=== PATIENT | female | born 1935 | race Caucasian/White ===

== ENCOUNTER 2024-08-20 08:18 | Inpatient (IN) | payer BC, MEDICARE, OTHER ==
--- NOTE | 2024-08-20 08:37 | ED ---
General Adult HPI - General Chief complaint: Fall Stated complaint: Right leg pain Time Seen by Provider: 08/20/24 08:21 Source: patient, EMS, RN notes reviewed Mode of arrival: EMS Limitations: no limitations - History of Present Illness Initial comments: Patient is an 88-year-old female presenting to the emergency department with concerns with right hip pain. Patient had a fall yesterday. No head injury or loss of consciousness. No neck or back pain. No chest pain or dyspnea. No abdominal pain. Patient states she was able to walk a couple steps yesterday with dragging her leg however he is unable to get out of bed today. No other area of injury or concern - Related Data Home Medications Medication Instructions Recorded Confirmed Baclofen 10 mg PO HS 08/20/24 08/20/24 Carbidopa-Levodopa ER 50-200Mg 1 tab PO BID 08/20/24 08/20/24 [Sinemet CR 50-200 mg] HYDROcodone/APAP 5-325MG [[place] 1 tab PO Q6H PRN 08/20/24 08/20/24 5-325] Magnesium Oxide [Magnesium] 500 mg PO DAILY 08/20/24 08/20/24 QUEtiapine [SEROquel] 25 mg PO HS 08/20/24 08/20/24 amLODIPine [Norvasc] 5 mg PO DAILY 08/20/24 08/20/24 Allergies Allergy/AdvReac Type Severity Reaction Status Date / Time Penicillins Allergy Severe Unknown Verified 08/20/24 10:41 Review of Systems ROS Statement: Those systems with pertinent positive or pertinent negative responses have been documented in the HPI. ROS Other: All systems not noted in ROS Statement are negative. Constitutional: Denies: fever Eyes: Denies: eye pain ENT: Denies: ear pain Respiratory: Denies: dyspnea Cardiovascular: Denies: chest pain Gastrointestinal: Denies: abdominal pain Musculoskeletal: Denies: back pain Skin: Denies: rash Neurological: Denies: weakness Past Medical History Past Medical History: Dementia, Hypertension Additional Past Medical History / Comment(s): Parkinson's, History of Any Multi-Drug Resistant Organisms: None Reported Past Surgical History: No Surgical Hx Reported Past Psychological History: No Psychological Hx Reported Smoking Status: Never smoker Past Alcohol Use History: None Reported Past Drug Use History: None Reported General Exam Limitations: no limitations General appearance: alert, in no apparent distress Head exam: Present: atraumatic, normocephalic Eye exam: Present: normal appearance Neck exam: Present: normal inspection. Absent: tenderness Respiratory exam: Present: normal lung sounds bilaterally Cardiovascular Exam: Present: regular rate, normal rhythm Expanded Peripheral pulses: 2+: Dorsalis Pedis (R) GI/Abdominal exam: Present: soft. Absent: tenderness Extremities exam: Present: tenderness (Mild right anterior hip with limited range of motion secondary to discomfort. Distally extremities are neurovascular intact.) Back exam: Present: normal inspection. Absent: tenderness Neurological exam: Present: alert. Absent: motor sensory deficit Psychiatric exam: Present: normal affect, normal mood Skin exam: Present: normal color Course Vital Signs 08/20/24 08:20 Temperature 98.9 F Pulse Rate 87 Respiratory 16 Rate Blood Pressure 147/96 O2 Sat by Pulse 92 L Oximetry EKG Findings - EKG Results: EKG: interpreted by MAUDE (l axis), sinus rhythm, normal QRS, normal ST/T Medical Decision Making - Medical Decision Making Was pt. sent in by a medical professional or institution (, PA, SOCIAL SERVICES SPECIALIST, urgent care, hospital, or retirement...) When possible be specific @ -No Did you speak to anyone other than the patient for history (EMS, parent, family, police, friend...)? What history was obtained from this source @ -No Did you review nursing and triage notes (agree or disagree)? Why? @ -I reviewed and agree with nursing and triage notes Were old charts reviewed (outside hosp., previous admission, EMS record, old EKG, old radiological studies, urgent care reports/EKG's, retirement records)? Report findings @ -No old charts were reviewed Differential Diagnosis (chest pain, altered mental status, abdominal pain women, abdominal pain men, vaginal bleeding, weakness, fever, dyspnea, syncope, headache, dizziness, GI bleed, back pain, seizure, CVA, palpatations, mental health, musculoskeletal)? @ -Differential Musculoskeletal Muscular strain, contusion, ligament sprain, fracture, arthritis, septic arthritis, bursitis, cellulitis, muscle spasm, nerve compression, DVT, arterial occlusion, herpes zoster, electrolyte abnormality, tumor.... This is not meant to be in all inclusive list EKG interpreted by me (3pts min.). @ -As above X-rays interpreted by me (1pt min.). @ -Chest x-ray unremarkable. X-ray right hip and pelvis concerning for right subcapital femoral neck fracture CT interpreted by me (1pt min.). @ -None done U/S interpreted by me (1pt. min.). @ -None done What testing was considered but not performed or refused? (CT, X-rays, U/S, labs)? Why? @ -Basic blood work and EKG will be ordered What meds were considered but not given or refused? Why? @ -None Did you discuss the management of the patient with other professionals (professionals i.e. , PA, SOCIAL SERVICES SPECIALIST, lab, RT, psych nurse, geriatric social worker, telecom assistant, teacher, customer service officer, caseworker intake)? Give summary @ -Orthopedics for admission, Dr. Lr Was smoking cessation discussed for >3mins.? @ -No Was critical care preformed (if so, how long)? @ -No Were there social determinants of health that impacted care today? How? (Homelessness, low income, unemployed, alcoholism, drug addiction, transportatio n, low edu. Level, literacy, decrease access to med. care, intermediate, rehab)? @ -No Was there de-escalation of care discussed even if they declined (Discuss DNR or withdrawal of care, Hospice)? DNR status @ -No What co-morbidities impacted this encounter? (DM, HTN, Smoking, COPD, CAD, Cancer, CVA, ARF, Chemo, Hep., AIDS, mental health diagnosis, sleep apnea, morbid obesity)? @ -None Was patient admitted / discharged? Hospital course, mention meds given and route, prescriptions, significant lab abnormalities, going to OR and other pertinent info. @ -88-year-old female presents for fall and right hip pain. Concern for femoral neck fracture. Patient will be admitted to orthopedics. [place] orders written Undiagnosed new problem with uncertain prognosis? @ -No Drug Therapy requiring intensive monitoring for toxicity (Heparin, Nitro, Insulin, Cardizem)? @ -No Were any procedures done? @ -No Diagnosis/symptom? @ -Femoral neck fracture Acute, or Chronic, or Acute on Chronic? @ -Acute Uncomplicated (without systemic symptoms) or Complicated (systemic symptoms)? @ -Default Side effects of treatment? @ -No Exacerbation, Progression, or Severe Exacerbation? @ -No Poses a threat to life or bodily function? How? (Chest pain, [place], NH, pneumonia, PE, COPD, DKA, ARF, appy, cholecystitis, CVA, Diverticulitis, Homicidal, Suicidal, threat to staff... and all critical care pts) @ -Threat to right lower leg function and ability to ambulate - Lab Data Result diagrams: 08/20/24 11:55 08/20/24 11:55 Disposition Clinical Impression: Hip fracture, right Disposition: ADMITTED IP TO THIS HOSP Is patient prescribed a controlled substance at d/c from ED?: No Time of Disposition: 11:23
[2024-08-20] MEDS: MORPHINE SULFATE 4 MG/ML SYRINGE IVP STA (09:21)
--- NOTE | 2024-08-20 09:54 | XR ---
EXAMINATION TYPE: XR chest 1V portable DATE OF EXAM: 08/20/2024 COMPARISON: None INDICATION: Trauma, fall TECHNIQUE: Single frontal view of the chest is obtained. FINDINGS: The heart size is mildly prominent. The pulmonary vasculature is normal. No suspicious focal consolidation evident. No pneumothorax evident. Osseous structures appear intact. IMPRESSION: 1. No acute pulmonary process. 2. Mild cardiomegaly. [facility], , 08/20/2024 9:51 AM
--- NOTE | 2024-08-20 09:56 | XR ---
EXAMINATION TYPE: XR Hip RT and AP Pelvis DATE OF EXAM: 08/20/2024 COMPARISON: None HISTORY: Trauma, fall TECHNIQUE: 2 view right hip supplemented with AP pelvis FINDINGS: There is lucency at the subcapital right hip. Correlate for nondisplaced subcapital fractur e. This could be confirmed with CT if additional evaluation is required. Femoral head articulates with the acetabulum. Joint space is narrowed. No additional areas suspicious for fractures evident. Normal bowel gas is present. Left hip articulates with the acetabulum. Symphysis pubis and sacroiliac joints are normal. IMPRESSION: 1. Nondisplaced subcapital fracture likely present right hip. [facility], , 08/20/2024 9:54 AM
[2024-08-20] MEDS ORDERED: ACETAMINOPHEN TAB 325 MG TAB PO PRN (11:36)
[2024-08-20] MEDS ORDERED: NALOXONE 0.4 MG/ML 1 ML VIAL IV PRN (11:36)
[2024-08-20] MEDS ORDERED: traMADol 50 MG TAB PO PRN (11:36)
[2024-08-20 12:04] LABS: Basophils % (A) 0 %; Eosinophils # (A) 0.2 k/uL (0-0.7); Eosinophils % (A) 2 %; HCT 38.4 % (34.0-46.0); HGB 12.6 gm/dL (11.4-16.0); Lymphocytes # (A) 0.6 k/uL (1.0-4.8); Lymphocytes % (A) 9 %; MCH 29.4 pg (25.0-35.0); MCHC 32.7 g/dL (31.0-37.0); MCV 89.7 fL (80.0-100.0); Mean Platelet Volume 7.8; Monocytes # (A) 0.4 k/uL (0-1.0); Monocytes % (A) 6 %; Neutrophils # (A) 5.7 k/uL (1.3-7.7); Neutrophils % (A) 82 %; Platelet Count 209 k/uL (150-450); RBC 4.28 m/uL (3.80-5.40); RDW 14.4 % (11.5-15.5)
[2024-08-20 12:14] LABS: ALT 45 U/L (4-34); AST 108 U/L (14-36); African American GFR (CKD) >90 (>60 ml/min/1.73 sqM); Albumin 3.6 g/dL (3.5-5.0); Alkaline Phosphatase 96 U/L (38-126); Anion Gap 4 mmol/L; Blood Urea Nitrogen 16 mg/dL (7-17); Calcium 8.8 mg/dL (8.4-10.2); Carbon Dioxide 28 mmol/L (22-30); Chloride 107 mmol/L (98-107); Glucose 121 mg/dL (74-99); Magnesium 2.2 mg/dL (1.6-2.3); Non-African American GFR(CKD) 78 (>60 ml/min/1.73 sqM); Potassium 4.3 mmol/L (3.5-5.1); Sodium 139 mmol/L (137-145); Total Protein 6.2 g/dL (6.3-8.2)
[2024-08-20 12:32] LABS: Prothrombin Time 10.5 sec (10.0-12.5)
[2024-08-20] MEDS: SODIUM CHLORIDE 0.9% 1,000 ML IV SCH (12:33)
[2024-08-20 12:39] LABS: Partial Thromboplastin Time 21.6 sec (22.0-30.0)
[2024-08-20] MEDS: MORPHINE SULFATE 4 MG/ML SYRINGE IV PRN (13:09)
--- NOTE | 2024-08-20 15:21 | P.HPOR ---
History of Present Illness H&P Date: 08/20/24 Chief Complaint: Right subcapital femoral head fracture status post ground level fall Patient is an 88-year-old female who presented to the emergency department with concerns of right hip pain. Patient had a ground level fall yesterday. No head injury or loss of consciousness. No neck or back pain. No chest pain or dyspnea. No abdominal pain. Patient states she was able to walk a couple steps yesterday with dragging her leg however she is unable to get out of bed today. No other area of injury or concern. Patient lives in an apartment with her . Patient has home health care come to her apartment. Patient does not regularly ambulate outside of her apartment. Patient has a past medical history of Parkinson's which makes her gait unsteady at baseline. When patient did ambulate before this fall, she used a wheeled walker, or cane. Part of today's history was acquired through family at bedside. Review of Systems All systems: negative Past Medical History Past Medical History: Dementia, Hypertension Additional Past Medical History / Comment(s): Parkinson's, History of Any Multi-Drug Resistant Organisms: None Reported Past Surgical History: No Surgical Hx Reported Past Psychological History: No Psychological Hx Reported Smoking Status: Never smoker Past Alcohol Use History: None Reported Past Drug Use History: None Reported Medications and Allergies Home Medications Medication Instructions Recorded Confirmed Type Baclofen 10 mg PO HS 08/20/24 08/20/24 History Carbidopa-Levodopa ER 50-200Mg 1 tab PO BID 08/20/24 08/20/24 History [Sinemet CR 50-200 mg] HYDROcodone/APAP 5-325MG [[place] 1 tab PO Q6H PRN 08/20/24 08/20/24 History 5-325] Magnesium Oxide [Magnesium] 500 mg PO DAILY 08/20/24 08/20/24 History QUEtiapine [SEROquel] 25 mg PO HS 08/20/24 08/20/24 History amLODIPine [Norvasc] 5 mg PO DAILY 08/20/24 08/20/24 History Allergies Allergy/AdvReac Type Severity Reaction Status Date / Time Penicillins Allergy Severe Unknown Verified 08/20/24 10:41 Physical Examination Patient was examined at bedside today. Patient was awake, and able to answer a few questions, but is slow to speak. Patient is able to forward flex bilateral shoulders, flex and extend elbows, flex and extend wrist, and make fist. Pain denies any pain to palpation of bilateral clavicles, shoulder, humerus, elbow, forearm, wrist, hand and fingers. Patient denies pain in left hip, left knee, left ankle or foot. Upon inspection, there is no previous scars or lesions over the anterior aspect of the right hip. Patient's right lower extremity is shortened in appearance compared to the left. Patient has tenderness about the right hip. Patient's right femoral nerve is grossly intact. Patient is able to dorsiflex and plantarflex bilateral ankles and toes. Results - Labs Labs: Abnormal Lab Results - Last 24 Hours (Table) 08/20/24 08/20/24 08/20/24 Range/Units 11:55 11:55 11:55 Lymphocytes # 0.6 L (1.0-4.8) k/uL APTT 21.6 L (22.0-30.0) sec Glucose 121 H (74-99) mg/dL AST 108 H (14-36) U/L ALT 45 H (4-34) U/L Total Protein 6.2 L (6.3-8.2) g/dL H & H 08/20/24 Range/Units 11:55 Hgb 12.6 (11.4-16.0) gm/dL Hct 38.4 (34.0-46.0) % Coagulation 08/20/24 Range/Units 11:55 INR 1.0 (<1.2) Result Diagrams: 08/20/24 11:55 08/20/24 11:55 Assessment and Plan Assessment: Right subcapital femoral head fracture status post ground-level fall. Plan: Patient was examined at bedside with family present. X-ray images were reviewed with patient and family today and proposed procedure was explained at length today. I discussed this case with orthopedic surgeon Dr. Lr, we will plan on performing a direct anterior right partial hip arthroplasty tomorrow or Friday pending clearance and OR availability.
--- NOTE | 2024-08-20 18:06 | P.CONS ---
History of Present Illness - Reason for Consult Consult date: 08/20/24 medical clearance and medical management Requesting physician: Josh Lr - History of Present Illness History of Presenting Illness: Patient is a pleasant 88-year-old female with a past medical history of hypertension, Parkinson's disease, and Alzheimer's dementia. She presented to the hospital status post mechanical fall yesterday. Patient ambulates with walker at baseline and had a mechanical fall from standing onto right hip. Patient initially able to ambulate a few steps with dragging her leg yesterday but today was unable to get out of bed due to right hip pain. Patient and family member at bedside denied patient hitting her head, loss of consciousness, dizziness prior to fall, or having any other injuries secondary to fall. States she was walking with her walker and simply lost her balance. Upon arrival to our facility, patient underwent evaluation in the emergency department. Vital signs upon arrival show blood pressure 147/96, heart rate 87, respiratory rate 16, temp 98.9 F, and SpO2 of 92% on room air. Preoperative EKG was reviewed showing sinus mechanism at 78 bpm with an incomplete right bundle branch block and no significant T wave or ST abnormality showing no signs of acute ischemia upon personal review and interpretation. Labs completed and reviewed. CBC unremarkable. Coagulation profile showing a low PTT of 21.6 otherwise normal findings. BMP normal findings with the exception of slightly elevated glucose of 121. Magnesium 2.0. Liver profile showing elevated AST of 108 and ALT of 45 otherwise normal findings. Chest x-ray negative for acute cardiopulmonary process showing mild cardiomegaly. X-ray right hip showing a nondisplaced subcapital fracture to right hip. Patient was admitted under orthopedic surgery team and we were consulted [facility] medical [facility] Review of systems: Pertinent positives and negatives as discussed in HPI, a complete review of systems was performed and all other systems are negative. Physical exam: Vital signs reviewed and stable. General: Nontoxic, no distress and appears stated age. Derm: Skin warm and dry, normal coloration for ethnicity. Head: Atraumatic, normocephalic and symmetric. Eyes: EOM's intact, no lid lag, and anicteric sclera Mouth: no lip lesions, mucus membranes moist Cardiovascular: regular rate and rhythm with normal S1S2, no murmur, positive posterior tibial pulses bilaterally, and cap refill < 2 seconds. Lungs: Respirations even, regular, and unlabored on room air. Lungs CTA bilaterally, no rhonchi, no rales, no wheezing, and no accessory muscle usage. Abdominal: soft, nontender to palpation, no guarding, no appreciable organomegaly. Orozco catheter in place. Ext: Movement and sensation intact. No shortening or rotation noted at time of assessment. No gross muscle atrophy, no edema, no contractures Neuro: Speech clear, face symmetrical and CN II-XII grossly intact with no noted focal neuro deficits Psych: Alert and oriented to person, place, time, and situation. Appropriate and pleasant affect. Assessment and Plan of Care: Preoperative clearance Nondisplaced subcapital fracture to right hip -NSQIP score was completed using surgical risk calculator. Patient at a below average risk of serious complication 8.9% with average risk being 11.6%. Below average risk for cardiac complications at 1.1% with average risk being 1.5% and a below average risk of at 2.4% with average risk being 3.6%. -Preoperative EKG was reviewed showing sinus mechanism at 78 bpm with an incomplete right bundle branch block and no significant T wave or ST abnormality showing no signs of acute ischemia upon personal review and interpretation. -Further workup unlikely to change preoperative management, from a medical perspective patient is medically optimized to proceed with surgery as recommended by primary admitting orthopedic surgery team without need for further testing at this time. Hypertension -Continue daily medication regimen with amlodipine 5 mg daily. Parkinson's disease Alzheimer's dementia Provide safe and supportive care with assistance and redirection as needed. Continue daily medication regimen with carbidopa levodopa 50-200 mg tablets twice daily, baclofen 10 mg nightly, and Seroquel 25 mg nightly. Data and imaging reviewed: As stated above in HPI. Thank you for allowing us to participate in the care of this pleasant patient. Do not hesitate to contact us with questions. Someone can be reached from the [facility] hospitalist group all hours of the day at [phone] or via perfect serve. Patient was seen independently by Nurse Practitioner. This document was prepared using [employer] dictation software. Please allow for errors in meat hostess while rare they do occur. I reviewed the documentation as provided by the ELENA above, who is the original author of this note. I agree with the documented assessment and plan, with the following changes: none Past Medical History Past Medical History: Dementia, Hypertension Additional Past Medical History / Comment(s): Parkinson's, History of Any Multi-Drug Resistant Organisms: None Reported Past Surgical History: No Surgical Hx Reported Past Psychological History: No Psychological Hx Reported Smoking Status: Never smoker Past Alcohol Use History: None Reported Past Drug Use History: None Reported Medications and Allergies Home Medications Medication Instructions Recorded Confirmed Type Baclofen 10 mg PO HS 08/20/24 08/20/24 History Carbidopa-Levodopa ER 50-200Mg 1 tab PO BID 08/20/24 08/20/24 History [Sinemet CR 50-200 mg] HYDROcodone/APAP 5-325MG [[place] 1 tab PO Q6H PRN 08/20/24 08/20/24 History 5-325] Magnesium Oxide [Magnesium] 500 mg PO DAILY 08/20/24 08/20/24 History QUEtiapine [SEROquel] 25 mg PO HS 08/20/24 08/20/24 History amLODIPine [Norvasc] 5 mg PO DAILY 08/20/24 08/20/24 History Allergies Allergy/AdvReac Type Severity Reaction Status Date / Time Penicillins Allergy Severe Unknown Verified 08/20/24 10:41 Physical Exam Osteopathic Statement: *. No significant issues noted on an osteopathic struct ural exam other than those noted in the History and Physical/Consult. Vitals: Vital Signs Temp Pulse Pulse Resp BP BP Pulse Ox 08/20/24 14:04 99.0 F 80 18 146/82 94 L 08/20/24 13:41 82 16 134/64 97 08/20/24 08:20 98.9 F 87 16 147/96 92 L Intake and Output 08/20/24 08/20/24 08/20/24 06:59 14:59 22:59 Other: Weight 54.431 kg Results CBC & Chem 7: 08/20/24 11:55 08/20/24 11:55 Labs: Abnormal Lab Results - Last 24 Hours (Table) 08/20/24 08/20/24 08/20/24 Range/Units 11:55 11:55 11:55 Lymphocytes # 0.6 L (1.0-4.8) k/uL APTT 21.6 L (22.0-30.0) sec Glucose 121 H (74-99) mg/dL AST 108 H (14-36) U/L ALT 45 H (4-34) U/L Total Protein 6.2 L (6.3-8.2) g/dL
[2024-08-20] MEDS: ACETAMINOPHEN IV (For NPO) 1,000 MG in EMPTY BAG 1 BAG IVPB SCH (18:25)
[2024-08-20 20:22] LABS: Glucose,Whole Blood 121 mg/dL (70-110)
[2024-08-20] MEDS: QUEtiapine 25 MG TAB PO SCH (21:04)
[2024-08-20] MEDS: BACLOFEN 10 MG TAB PO SCH (21:04)
[2024-08-21 00:37] LABS: Glucose,Whole Blood 118 mg/dL (70-110)
[2024-08-21 05:53] LABS: Glucose,Whole Blood 94 mg/dL (70-110)
[2024-08-21] MEDS: CARBIDOPA-LEVODOPA ER 50-200MG 1 EACH TABLET.ER PO SCH (06:53)
[2024-08-21] MEDS: amLODIPine 5 MG TAB PO SCH (06:53)
[2024-08-21 09:22] LABS: HCT 32.9 % (37.2-46.3); HGB 10.4 g/dL (12.0-15.0); MCH 28.7 pg (27.0-32.0); MCHC 31.6 g/dL (32.0-37.0); MCV 90.9 FL (80.0-97.0); Mean Platelet Volume 10.8 FL (9.5-12.2); NRBC Per 100 WBC 0 X 10*3/uL (0.00-0.01); Platelet Count 181 X 10*3/uL (140-440); RBC 3.62 X 10*6/uL (4.10-5.20); RDW 14.9 % (11.5-14.5); WBC 5.48 X 10*3/uL (4.50-10.00)
[2024-08-21 09:40] LABS: BUN/Creat Ratio 23.11 Ratio (12.00-20.00); Blood Urea Nitrogen 20.8 mg/dL (9.0-27.0); Carbon Dioxide 22.5 mmol/L (21.6-31.8); Chloride 110 mmol/L (96-109); Glucose 94 mg/dL (70-110); Magnesium 2.3 mg/dL (1.5-2.4); Potassium 4.4 mmol/L (3.5-5.5); Sodium 141 mmol/L (135-145)
[2024-08-21 09:41] LABS: ALT 100 U/L (8-44); AST 108 U/L (13-35); Albumin 3.2 g/dL (3.8-4.9); Albumin/Globulin Ratio 1.88 Ratio (1.60-3.17); Alkaline Phosphatase 142 U/L (41-126); Globulin 1.7 g/dL (1.6-3.3); Total Bilirubin 0.5 mg/dL (0.3-1.2); Total Protein 4.9 g/dL (6.2-8.2)
[2024-08-21] MEDS ORDERED: KETAMINE HCL IN 0.9 % NACL 50 MG/5 ML SYRINGE ONE (09:47)
[2024-08-21] MEDS ORDERED: NEOSTIGMINE 1 MG/ML 10 ML VIAL ONE (09:47)
[2024-08-21] MEDS ORDERED: PROPOFOL 10 MG/ML 20 ML VIAL IV ONE (09:47)
[2024-08-21] MEDS ORDERED: SUCCINYLCHOLINE CHLORIDE 200 MG/10 ML VIAL IV ONE (09:47)
[2024-08-21] MEDS ORDERED: GLYCOPYRROLATE 0.2 MG/ML 2 ML VIAL ONE (09:47)
[2024-08-21] MEDS: LACTATED RINGERS 1,000 ML IV ONE (09:53)
[2024-08-21] MEDS ORDERED: MAGNESIUM HYDROXIDE 2,400 MG/30 ML CUP PO PRN (11:25)
[2024-08-21] MEDS ORDERED: HYDROcodone/APAP 10-325MG 1 EACH TAB PO PRN (11:25)
[2024-08-21] MEDS ORDERED: NALOXONE 0.4 MG/ML 1 ML VIAL IV PRN (11:25)
[2024-08-21] MEDS ORDERED: HYDROmorphone 0.5 MG/0.5 ML SYRINGE IVP PRN ×3 (11:25)
[2024-08-21] MEDS ORDERED: ONDANSETRON 4 MG/2 ML VIAL IVP PRN (11:25)
[2024-08-21] MEDS: BUPIVACAINE (PF) 0.5% 30 ML VIAL SQ ONE (11:26)
--- NOTE | 2024-08-21 12:17 | XR ---
EXAMINATION TYPE: XR Hip Limited RT, FL guidance operating room DATE OF EXAM: 08/21/2024 11:41 AM CLINICAL INDICATION: Female, 88 years old with history of Rt Hip-Ant; [facility] COMPARISON: None. TECHNIQUE: Multiple fluoroscopic intraoperative images were provided. FINDINGS: Post right hip arthroplasty changes no evidence of fracture. Degeneration changes of pubic symphysis. Total fluoroscopy time is 20.4 seconds with a total of 6 submitted images to PACS. Please see the ope rative/procedural note for further details. DAP: 0.6345 mGym2 Gycm2 uGym2 cGycm2 IMPRESSION: Post right hip arthroplasty changes hardware intact. No evidence of fracture. [facility], , 08/21/2024 12:15 PM
[2024-08-21] MEDS: SODIUM CHLORIDE 0.9% 1,000 ML IV ONE (13:04)
--- NOTE | 2024-08-21 13:05 | P.OP ---
Date of Procedure: 08/21/24 Preoperative Diagnosis: 1. Right subcapital femoral neck fracture 2. Parkinson's Disease 3. Dementia Postoperative Diagnosis: Same Procedure(s) Performed: Right direct anterior hip hemiarthroplasty Implants: [place] Accolade C Size #3 STD offset (132-deg) and Bipolar head 43mm OD, 26mm ID with -3mm neck Anesthesia: LAWSON Surgeon: Josh Lr Estimated Blood Loss (ml): 200 IV fluids (ml): 800 Pathology: none sent Condition: stable Disposition: PACU Indications for Procedure: I met with the patient and their family to discuss treatment options. The patient has a displaced femoral neck fracture and based on their age, activity level, and medical comorbidities I recommended a hip hemiarthroplasty to facilitate early mobilization. My recommendation was to perform the hemiarthroplasty through a direct anterior approach to help lower the risk of dislocation and improve postoperative recovery and use cemented fixation of the femoral component to reduce the risk of fracture and postoperative thigh pain. We discussed the potential risks and complications of a hemiarthroplasty for displaced femoral neck fracture at length. Risks discussed include are certainly not limited to risks from anesthesia, superficial infection requiring local wound care and possibly surgical debridement, deep periprosthetic joint infection and the treatment for this, damage to local blood vessels or nerves particularly the lateral femoral cutaneous nerve, intraoperative fracture, postoperative periprosthetic fracture, leg length discrepancy, hip dislocation, aseptic loosening, groin pain, thigh pain, progression of arthritis requiring conversion to total hip arthroplasty, complications related to cementing the component, an inability to regain preinjury level of function, DVT, PE, acute coronary event, stroke, pneumonia, urinary tract infection, failure to thrive, and possibly . The patient and their family understand that while these are the most common complications other less common complications are possible. They provided their verbal and written consent to go forward with surgery. Operative Findings: There was a large hemarthrosis consistent with an acute fracture. There was a subcapital femoral neck fracture which was grossly unstable and comminution posteriorly. Description of Procedure: The patient was identified in the preoperative holding area and the correct hip was marked with my initials. I reviewed the procedure and consent with the patient. All of their questions were answered. The patient was then brought back into the operating room by anesthesia. While on the [facility] anesthesia was administered by the anesthesia team. Preoperative antibiotics and tranexamic acid were also given. After the patient was under anesthesia I examined their ankles to determine their preoperative leg length discrepancy. The skin over the anterior aspect of the hip was shaved to remove hair over the site of planned incision. Both feet and ankles were padded with webril and boots for the Othello were applied. The patient was then carefully transferred onto the Othello table. A perineal post was immediately placed. The arms were placed on arm holders and were well-padded. Both boots were secured to the spars on the Othello table. The patient was positioned so that the pelvis was centered over the post. Nonsterile drapes were applied. A timeout was performed identifying the correct patient, operative extremity, and procedure. At this point fluoroscopy was brought in to take preoperative images of the pelvis and operative hip. A metallic bar was used to create a bi-ischial line for use as a reference to leg length adjustments during the procedure. Global offset was also measured on both the operative and nonoperative leg. Fluoroscopy was then brought out and a pre-scrub using a chlorhexidine scrub brush was performed. The operative limb was then prepped and draped in the standard sterile fashion. An anterior longitudinal incision was made lateral and distal to the ASIS. The skin and subcutaneous tissues were incised sharply. The underlying tensor fascia was identified and incised in its midportion. The fascia was dissected free from the underlying muscle and the muscle belly was retracted. A blunt tipped cobra retractor was placed over the superior neck under the muscle fibers of the gluteus minimus. The deep enveloping fascia of the tensor was incised. The anterior leash of vessels were then identified and cauterized. The fascia between the rectus and the capsule was then incised and the pre-capsular fat was excised. A second Cobra was placed inferior to the neck. The interval between the rectus and iliocapsularis and the hip capsule was developed and a retractor was placed carefully over the anterior rim of the acetabulum. A T-shaped anterior capsulotomy was performed. A hemarthrosis consistent with a femoral neck fracture was identified. The superior capsular leaflet was left in place i n the inferior capsular flap was excised. The Cobra retractors were placed intracapsularly. A displaced femoral neck fracture was then identified. We then made a femoral neck osteotomy according to preoperative and intraoperative templating and confirmed the level of the osteotomy using fluoroscopic imaging. The femoral head was removed, passed off to the back table, and sized. The superior capsular flap was excised. On inspection of the acetabulum there were minimal degenerative changes with intact cartilage. Attention was then turned to the femur. The remnant dorsal lateral capsule was excised. The short external rotators were visible and protected. A bone hook was used to confirm appropriate translation of the trochanter away from the acetabulum. The leg was then extended and adducted and the bone hook was used to elevate the femur for broaching. A box osteotome and blunt tipped canal sound was then utilized to gain access to the femoral canal. We then sequentially broached the femur in appropriate anteversion until torsional stability was achieved and the implant was felt to have reached the appropriate size to allow trialing. The neck cut was brought flush to the trial broach with a calcar planar. A trial neck and head were then placed onto the broach and the hip was atraumatically reduced under direct visualization. External rotation to 90 was performed to assess stability. Fluoroscopy was brought in. An AP and lateral fluoroscopic image of the proximal femur was obtained to assess position and fill of the trial broach. An AP of the pelvis was then obtained and matched to the preoperative image taken. A bi-ischial bar was then placed and measurements were taken to assess changes in length and offset. The hip was then carefully dislocated, the proximal femur was exposed, and the trial implants were removed. The proximal femur was then prepared for cementing. The canal was thoroughly irrigated with pulsatile lavage to remove blood and marrow contents. A cement restrictor was placed to a depth just distal to the tip of the final implant. Epinephrine-soaked gauze was then packed into the proximal femur. 2 bags of cement with antibiotics were then mixed using a centrifuge and placed into a cement gun. Anesthesia was notified that cementing was about to commence to make sure the patient was appropriately ventilated and hydrated. Once the cement had reached appropriate consistency, the cement gun was used to fill the canal in a retrograde fashion starting at the restrictor. Cement was then pressurized into the canal with a blue tipped well drill operator. The stem was then carefully introduced into the cement taking care to guide the implant into appropriate version. The stem was held in position until the cement had fully set. All extra cement was removed while the cement was hardening. The trunnion was cleansed and the final head was tapped into place to engage the Hoang taper. The acetabulum was irrigated and visualized to be free of debris. The hip was carefully reduced. Stability was checked clinically with external rotation to 90 and there was no evidence of instability. Final fluoroscopic images were taken. The wound was then thoroughly irrigated with Irrisept. 3 L of sterile saline was irrigated through the wound using pulsatile lavage. Local anesthetic cocktail was injected into the soft tissues around the surgical field. The wound was then closed in layers. A sterile dressing was placed over the surgical incision. The drapes were taken down and the patient was carefully transferred off of the Othello table. Following removal of the boots the leg lengths felt acceptable. The patient was then taken to recovery room having tolerated the procedure well. Kwame Luis PA-C required as a skilled technical support assistant due to the complexity of surgery for patient positioning, draping, exposure, retraction, closure of wound, and application of dressing PLAN: The patient can weight-bear as tolerated on the operative extremity. 2 doses of postoperative antibiotics. DVT prophylaxis with aspirin 81 mg twice a day based on preoperative risk stratification. Physical therapy for gait training.
[2024-08-21 13:15] LABS: Glucose,Whole Blood 112 mg/dL (70-110)
--- NOTE | 2024-08-21 14:53 | P.PN ---
Subjective Progress Note Date: 08/21/24 Hospital course: Patient is a pleasant 88-year-old female with a past medical history of hypertension, Parkinson's disease, and Alzheimer's dementia. She presented to the hospital status post mechanical fall yesterday. Patient ambulates with walker at baseline and had a mechanical fall from standing onto right hip. Patient initially able to ambulate a few steps with dragging her leg yesterday but today was unable to get out of bed due to right hip pain. Patient and family member at bedside denied patient hitting her head, loss of consciousness, dizziness prior to fall, or having any other injuries secondary to fall. States she was walking with her walker and simply lost her balance. Upon arrival to our facility, patient underwent evaluation in the emergency department. Vital signs upon arrival show blood pressure 147/96, heart rate 87, respiratory rate 16, temp 98.9 F, and SpO2 of 92% on room air. Preoperative EKG was reviewed showing sinus mechanism at 78 bpm with an incomplete right bundle branch block and no significant T wave or ST abnormality showing no signs of acute ischemia upon personal review and interpretation. Labs completed and reviewed. CBC unremarkable. Coagulation profile showing a low PTT of 21.6 otherwise normal fi ndings. BMP normal findings with the exception of slightly elevated glucose of 121. Magnesium 2.0. Liver profile showing elevated AST of 108 and ALT of 45 otherwise normal findings. Chest x-ray negative for acute cardiopulmonary process showing mild cardiomegaly. X-ray right hip showing a nondisplaced subcapital fracture to right hip. Patient was admitted under orthopedic surgery team and we were consulted for medical clearance and medical management throughout hospitalization. Physical exam: Patient was seen and fully evaluated at bedside upon return from the OR for right hip hemiarthroplasty. She remains drowsy secondary to anesthesia rece ived, but easily awoken via verbal stimuli. Patient currently denies having any pain or complaints and keeps stating she wants to go home. Patient's daughter is visiting at bedside. Vital signs reviewed and stable. General: Nontoxic, no distress and appears stated age. Derm: Skin warm and dry, normal coloration for ethnicity. Head: Atraumatic, normocephalic and symmetric. Eyes: EOM's intact, no lid lag, and anicteric sclera Mouth: no lip lesions, mucus membranes moist Cardiovascular: regular rate and rhythm with normal S1S2, no murmur, positive posterior tibial pulses bilaterally, and cap refill < 2 seconds. Lungs: Respirations even, regular, and unlabored on room air. Lungs CTA bi laterally, no rhonchi, no rales, no wheezing, and no accessory muscle usage. Abdominal: soft, nontender to palpation, no guarding, no appreciable organomegaly. Orozco catheter in place. Ext: Movement and sensation intact. No shortening or rotation noted at time of assessment. No gross muscle atrophy, no edema, no contractures Neuro: Speech clear, face symmetrical and CN II-XII grossly intact with no noted focal neuro deficits Psych: Alert and oriented to person, place, time, and situation. Appropriate and pleasant affect. Assessment and Plan of Care: Status post right hemiarthroplasty Nondisplaced subcapital fracture to right hip -Management per primary admitting orthopedic surgery team including DVT pro phylaxis, pain management, wound/dressing management, weightbearing, and PT/OT. -Patient currently on DVT prophylaxis with aspirin 81 mg twice daily. -Encourage use of incentive spirometry. -Patient to remain on telemetry monitoring at this time. Acute blood loss anemia secondary to traumatic femur fracture -Hemoglobin upon arrival 12.6 currently 10.4. No signs of active bleeding. No need for blood transfusion or further intervention at this time. Will continue to monitor with repeat a.m. labs and transfuse if indicated for hemoglobin less than 7. Transaminitis -Unclear origin. Will continue to monitor with repeat a.m. labs, if further elevation or patient develops abdominal pain/discomfort will obtain ultrasound of liver. Hypertension -Vital signs reviewed and stable with blood pressure 147/67 and heart rate 69. Continue daily medication regimen with amlodipine 5 mg daily. Parkinson's disease Alzheimer's dementia Provide safe and supportive care with assistance and redirection as needed. Maintain fall precautions Continue daily medication regimen with carbidopa levodopa 50-200 mg tablets twice daily, baclofen 10 mg nightly, and Seroquel 25 mg nightly. Data and imaging reviewed: Morning labs reviewed. CBC showing acute blood loss anemia with hemoglobin of 10.4. BMP showing hyperchloremia with chloride of 110 otherwise normal findings. Blood glucose 112. Magnesium 2.3. Liver profile showing transaminitis with AST of 108, ALT of 100, and alkaline phosphatase of 142. Vital signs reviewed. Blood pressure 147/67, heart rate 69, respiratory rate 17, temp 97.8 F, and SpO2 of 92% on 2 L. Thank you for allowing us to participate in the care of this pleasant patient. Do not hesitate to contact us with questions. Someone can be reached from the [facility] hospitalist group all hours of the day at [phone] or via perfect serve. Patient was seen independently by Nurse Practitioner. This document was prepared using [employer] dictation software. Please allow for errors in indexer while rare they do occur. I reviewed the documentation as provided by the ELENA above, who is the original author of this note. I agree with the documented assessment and plan, with the following changes: none Objective - Vital Signs Vital signs: Vital Signs Temp 97.7 F 08/21/24 00:33 Pulse 59 L 08/21/24 00:33 Resp 17 08/21/24 00:33 BP 136/62 08/21/24 00:33 Pulse Ox 93 L 08/21/24 00:33 FiO2 Intake & Output 08/20/24 08/21/24 08/21/24 18:59 06:59 18:59 Output Total 200 250 Balance -200 -250 Weight 54.431 kg Output: Urine 200 250 Other: Voiding Method Indwelling Catheter - Labs CBC & Chem 7: 08/21/24 04:37 08/21/24 04:37 Labs: Abnormal Lab Results - Last 24 Hours (Table) 08/20/24 08/20/24 08/20/24 Range/Units 11:55 11:55 11:55 Lymphocytes # 0.6 L (1.0-4.8) k/uL APTT 21.6 L (22.0-30.0) sec Glucose 121 H (74-99) mg/dL POC Glucose (mg/dL) (70-110) mg/dL AST 108 H (14-36) U/L ALT 45 H (4-34) U/L Total Protein 6.2 L (6.3-8.2) g/dL 08/20/24 08/21/24 Range/Units 20:20 00:32 Lymphocytes # (1.0-4.8) k/uL APTT (22.0-30.0) sec Glucose (74-99) mg/dL POC Glucose (mg/dL) 121 H 118 H (70-110) mg/dL AST (14-36) U/L ALT (4-34) U/L Total Protein (6.3-8.2) g/dL
[2024-08-21 15:36] LABS: Basophils % (A) 0 %; Eosinophils % (A) 0 %; HCT 34.5 % (34.0-46.0); HGB 10.9 gm/dL (11.4-16.0); Hypochromasia Slight; Lymphocytes # (A) 0.4 k/uL (1.0-4.8); Lymphocytes % (A) 4 %; MCH 29.2 pg (25.0-35.0); MCHC 31.7 g/dL (31.0-37.0); MCV 91.9 fL (80.0-100.0); Monocytes # (A) 0.5 k/uL (0-1.0); Monocytes % (A) 5 %; Neutrophils % (A) 90 %; Platelet Count 178 k/uL (150-450); RBC 3.75 m/uL (3.80-5.40); RDW 14.4 % (11.5-15.5); WBC 10.1 k/uL (3.8-10.6)
[2024-08-21 16:47] LABS: Glucose,Whole Blood 111 mg/dL (70-110)
[2024-08-21] MEDS: hydrOXYzine pamoate 25 MG CAP PO PRN (18:46)
[2024-08-21] MEDS: ASPIRIN 81 MG PO SCH (20:52)
[2024-08-21] MEDS: SENNOSIDES-DOCUSATE SODIUM 1 EACH TAB PO SCH (20:52)
[2024-08-22 00:54] LABS: Glucose,Whole Blood 114 mg/dL (70-110)
[2024-08-22 06:21] LABS: Glucose,Whole Blood 123 mg/dL (70-110)
--- NOTE | 2024-08-22 08:32 | P.PN ---
Subjective the patient had an episode of confusion yesterday postoperatively. She was evaluated by internal medicine and this was attributed to postoperative delirium and residual effects of anesthesia. According to the patient's daughter and nurse she is better this morning although she has been somewhat combative overnight. She is confused. She has minimal pain in the right hip. Objective - Vital Signs Vital signs: Vital Signs Temp 98.8 F 08/22/24 00:52 Pulse 90 08/22/24 00:52 Resp 15 08/22/24 00:52 BP 150/79 08/22/24 00:52 Pulse Ox 98 08/22/24 00:52 FiO2 Intake & Output 08/21/24 08/22/24 08/22/24 18:59 06:59 18:59 Intake Total 800 350 Output Total 900 550 Balance -100 -200 Weight 54.431 kg Intake: IV 800 Oral 350 Output: Urine 700 550 Estimated Blood Loss 200 Other: Voiding Method Indwelling Catheter Indwelling Catheter - Exam The patient is resting comfortably in their bed. A focused examination of the operative hip was performed. On inspection there is a clean-appearing dressing over the anterior hip with no drainage or strike through. There is mild swelling throughout the thigh. Femoral nerve function is intact. The patient is able to actively dorsiflex and plantarflex their ankle and toes. Sensation is intact to light touch throughout the foot. The foot is warm and well-perfused with brisk capillary refill. - Labs CBC & Chem 7: 08/21/24 15:02 08/21/24 04:37 Labs: Abnormal Lab Results - Last 24 Hours (Table) 08/21/24 08/21/24 08/21/24 Range/Units 04:37 04:37 13:14 RBC 3.62 L (4.10-5.20) X 10*6/uL Hgb 10.4 L (12.0-15.0) g/dL Hct 32.9 L (37.2-46.3) % MCHC 31.6 L (32.0-37.0) g/dL RDW 14.9 H (11.5-14.5) % Neutrophils # (1.3-7.7) k/uL Lymphocytes # (1.0-4.8) k/uL Chloride 110 H (96-109) mmol/L BUN/Creatinine Ratio 23.11 H (12.00-20.00) Ratio POC Glucose (mg/dL) 112 H (70-110) mg/dL Calcium 8.0 L (8.7-10.3) mg/dL AST 108 H (13-35) U/L ALT 100 H (8-44) U/L Alkaline Phosphatase 142 H (41-126) U/L Total Protein 4.9 L (6.2-8.2) g/dL Albumin 3.2 L (3.8-4.9) g/dL 08/21/24 08/21/24 08/22/24 Range/Units 15:02 16:45 00:52 RBC 3.75 L (4.10-5.20) X 10*6/uL Hgb 10.9 L (12.0-15.0) g/dL Hct (37.2-46.3) % MCHC (32.0-37.0) g/dL RDW (11.5-14.5) % Neutrophils # 9.0 H (1.3-7.7) k/uL Lymphocytes # 0.4 L (1.0-4.8) k/uL Chloride (96-109) mmol/L BUN/Creatinine Ratio (.00-.00) Ratio POC Glucose (mg/dL) 111 H 114 H (70-110) mg/dL Calcium (8.7-10.3) mg/dL AST (13-35) U/L ALT (8-44) U/L Alkaline Phosphatase (41-126) U/L Total Protein (6.2-8.2) g/dL Albumin (3.8-4.9) g/dL 08/22/24 Range/Units 06:18 RBC (4.10-5.20) X 10*6/uL Hgb (12.0-15.0) g/dL Hct (37.2-46.3) % MCHC (32.0-37.0) g/dL RDW (11.5-14.5) % Neutrophils # (1.3-7.7) k/uL Lymphocytes # (1.0-4.8) k/uL Chloride (96-109) mmol/L BUN/Creatinine Ratio (.00-.00) Ratio POC Glucose (mg/dL) 123 H (70-110) mg/dL Calcium (8.7-10.3) mg/dL AST (13-35) U/L ALT (8-44) U/L Alkaline Phosphatase (41-126) U/L Total Protein (6.2-8.2) g/dL Albumin (3.8-4.9) g/dL Assessment and Plan Assessment: postoperative day #1 status post right hip hemiarthroplasty for femoral neck fracture Resolving postoperative delirium Baseline Alzheimer's dementia Parkinson's disease Plan: 1. Weight bear as tolerated on the operative extremity, up with assistance and a walker 2. DVT prophylaxis with aspirin 81 mg BID 3. 2 doses of post operative antibiotics 4. Leave surgical dressing in place 5. Internal medicine for jorje-operative medical management. Appreciate their assistance with medical management 6. Physical therapy for gait training and mobilization 7. Dispo: The patient will likely need discharge to subacute nursing facility or rehab in 1-2 days.
[2024-08-22] MEDS: HYDROcodone/APAP 5-325MG 1 EACH TAB PO PRN (09:21)
[2024-08-22 10:01] LABS: ALT 73 U/L (8-44); AST 82 U/L (13-35); Albumin 3.2 g/dL (3.8-4.9); Albumin/Globulin Ratio 1.68 Ratio (1.60-3.17); Alkaline Phosphatase 155 U/L (41-126); BUN/Creat Ratio 22.43 Ratio (12.00-20.00); Blood Urea Nitrogen 15.7 mg/dL (9.0-27.0); Calcium 7.9 mg/dL (8.7-10.3); Carbon Dioxide 19.4 mmol/L (21.6-31.8); Chloride 107 mmol/L (96-109); Globulin 1.9 g/dL (1.6-3.3); Glucose 112 mg/dL (70-110); HCT 31.9 % (37.2-46.3); MCH 28.9 pg (27.0-32.0); MCHC 31.3 g/dL (32.0-37.0); MCV 92.2 FL (80.0-97.0); Mean Platelet Volume 11.4 FL (9.5-12.2); NRBC Per 100 WBC 0 X 10*3/uL (0.00-0.01); Platelet Count 162 X 10*3/uL (140-440); Potassium 4.2 mmol/L (3.5-5.5); RBC 3.46 X 10*6/uL (4.10-5.20); RDW 14.6 % (11.5-14.5); Sodium 139 mmol/L (135-145); Total Bilirubin 0.5 mg/dL (0.3-1.2); Total Protein 5.1 g/dL (6.2-8.2); WBC 7.83 X 10*3/uL (4.50-10.00)
[2024-08-22 11:40] LABS: Glucose,Whole Blood 166 mg/dL (70-110)
--- NOTE | 2024-08-22 12:05 | P.PN ---
Subjective Progress Note Date: 08/22/24 Hospital course: Patient is a pleasant 88-year-old female with a past medical history of hypertension, Parkinson's disease, and Alzheimer's dementia. She presented to the hospital status post mechanical fall yesterday. Patient ambulates with walker at baseline and had a mechanical fall from standing onto right hip. Patient initially able to ambulate a few steps with dragging her leg yesterday but today was unable to get out of bed due to right hip pain. Patient and family member at bedside denied patient hitting her head, loss of consciousness, dizziness prior to fall, or having any other injuries secondary to fall. States she was walking with her walker and simply lost her balance. Upon arrival to our facility, patient underwent evaluation in the emergency department. Vital signs upon arrival show blood pressure 147/96, heart rate 87, respiratory rate 16, temp 98.9 F, and SpO2 of 92% on room air. Preoperative EKG was reviewed showing sinus mechanism at 78 bpm with an incomplete right bundle branch block and no significant T wave or ST abnormality showing no signs of acute ischemia upon personal review and interpretation. Labs completed and reviewed. CBC unremarkable. Coagulation profile showing a low PTT of 21.6 otherwise normal fi ndings. BMP normal findings with the exception of slightly elevated glucose of 121. Magnesium 2.0. Liver profile showing elevated AST of 108 and ALT of 45 otherwise normal findings. Chest x-ray negative for acute cardiopulmonary process showing mild cardiomegaly. X-ray right hip showing a nondisplaced subcapital fracture to right hip. Patient was admitted under orthopedic surgery team and we were consulted for medical clearance and medical management throughout hospitalization. Physical exam: Patient was seen and fully evaluated at bedside this morning. She was resting comfortably in bed but reports moderate pain to right hip. Daughter at bedside. Orozco catheter remains in place and to be removed later today. Patient encouraged to get up to chair with meals today and discussed this with nursing staff. Patient and patient's daughter deny having any other questions, needs, or concerns at this time. Vital signs reviewed and stable. General: Nontoxic, no distress and appears stated age. Derm: Skin warm and dry, normal coloration for ethnicity. Head: Atraumatic, normocephalic and symmetric. Eyes: EOM's intact, no lid lag, and anicteric sclera Mouth: no lip lesions, mucus membranes moist Cardiovascular: regular rate and rhythm with normal S1S2, no murmur, positive posterior tibial pulses bilaterally, and cap refill < 2 seconds. Lungs: Respirations even, regular, and unlabored on room air. Lungs CTA bilaterally, no rhonchi, no rales, no wheezing, and no accessory muscle usage. Abdominal: soft, nontender to palpation, no guarding, no appreciable organomegaly. Orozco catheter in place. Ext: Movement and sensation intact. No gross muscle atrophy, no edema, no contractures. Postoperative dressing intact right lateral hip/thigh. Neuro: Speech clear, face symmetrical and CN II-XII grossly intact with no noted focal neuro deficits Psych: Alert and oriented to person, place, time, and situation. Appropriate and pleasant affect. Assessment and Plan of Care: Status post right hemiarthroplasty Nondisplaced subcapital fracture to right hip -Management per primary admitting orthopedic surgery team including DVT prophylaxis, pain management, wound/dressing management, weightbearing, and PT/OT. -Patient currently on DVT prophylaxis with aspirin 81 mg twice daily. -Encourage use of incentive spirometry. -Patient to remain on telemetry monitoring at this time. Acute blood loss anemia secondary to traumatic femur fracture -Hemoglobin upon arrival 12.6 currently 10.0. No signs of active bleeding. No need for blood transfusion or further intervention at this time. Will continue to monitor with repeat a.m. labs and transfuse if indicated for hemoglobin less than 7. Transaminitis -Likely reactive and are improving. Will continue to monitor for resolution with repeat a.m. labs. Hypertension -Vital signs reviewed and stable with blood pressure 145/77 and heart rate 93. Continue daily medication regimen with amlodipine 5 mg daily. Parkinson's disease Alzheimer's dementia Provide safe and supportive care with assistance and redirection as needed. Maintain fall precautions Continue daily medication regimen with carbidopa levodopa 50-200 mg tablets twice daily, baclofen 10 mg nightly, and Seroquel 25 mg nightly. Data and imaging reviewed: Morning labs reviewed. CBC showing stable hemoglobin of 10.0. BMP showing mild metabolic acidosis with chloride of 107, bicarb 19.4, and anion gap of 12.60. Blood glucose 112. Magnesium 2.0. Liver profile showing improvement of liver enzymes with AST of 82, ALT of 73, and alkaline phosphatase of 155. Vital signs reviewed. Blood pressure 145/77, heart rate 93, respiratory rate 17, temp 98.7 F, and SpO2 of 93% on room air. Thank you for allowing us to participate in the care of this pleasant patient. Do not hesitate to contact us with questions. Someone can be reached from the [facility] hospitalist group all hours of the day at [phone] or via perfect serve. Patient was seen independently by Nurse Practitioner. This document was prepared using [employer] dictation software. Please allow for errors in risk assessment consultant while rare they do occur. . Objective - Vital Signs Vital signs: Vital Signs Temp 98.8 F 08/22/24 00:52 Pulse 90 08/22/24 00:52 Resp 15 08/22/24 00:52 BP 150/79 08/22/24 00:52 Pulse Ox 98 08/22/24 00:52 FiO2 Intake & Output 08/21/24 08/22/24 08/22/24 18:59 06:59 18:59 Intake Total 800 350 Output Total 900 550 Balance -100 -200 Weight 54.431 kg Intake: IV 800 Oral 350 Output: Urine 700 550 Estimated Blood Loss 200 Other: Voiding Method Indwelling Catheter Indwelling Catheter Indwelling Catheter - Labs CBC & Chem 7: 08/22/24 04:37 08/22/24 04:37 Labs: Abnormal Lab Results - Last 24 Hours (Table) 08/21/24 08/21/24 08/21/24 Range/Units 04:37 04:37 13:14 RBC 3.62 L (4.10-5.20) X 10*6/uL Hgb 10.4 L (12.0-15.0) g/dL Hct 32.9 L (37.2-46.3) % MCHC 31.6 L (32.0-37.0) g/dL RDW 14.9 H (11.5-14.5) % Neutrophils # (1.3-7.7) k/uL Lymphocytes # (1.0-4.8) k/uL Chloride 110 H (96-109) mmol/L BUN/Creatinine Ratio 23.11 H (12.00-20.00) Ratio POC Glucose (mg/dL) 112 H (70-110) mg/dL Calcium 8.0 L (8.7-10.3) mg/dL AST 108 H (13-35) U/L ALT 100 H (8-44) U/L Alkaline Phosphatase 142 H (41-126) U/L Total Protein 4.9 L (6.2-8.2) g/dL Albumin 3.2 L (3.8-4.9) g/dL 08/21/24 08/21/24 08/22/24 Range/Units 15:02 16:45 00:52 RBC 3.75 L (4.10-5.20) X 10*6/uL Hgb 10.9 L (12.0-15.0) g/dL Hct (37.2-46.3) % MCHC (32.0-37.0) g/dL RDW (11.5-14.5) % Neutrophils # 9.0 H (1.3-7.7) k/uL Lymphocytes # 0.4 L (1.0-4.8) k/uL Chloride (96-109) mmol/L BUN/Creatinine Ratio (12.00-20.00) Ratio POC Glucose (mg/dL) 111 H 114 H (70-110) mg/dL Calcium (8.7-10.3) mg/dL AST (13-35) U/L ALT (8-44) U/L Alkaline Phosphatase (41-126) U/L Total Protein (6.2-8.2) g/dL Albumin (3.8-4.9) g/dL 08/22/24 Range/Units 06:18 RBC (4.10-5.20) X 10*6/uL Hgb (12.0-15.0) g/dL Hct (37.2-46.3) % MCHC (32.0-37.0) g/dL RDW (11.5-14.5) % Neutrophils # (1.3-7.7) k/uL Lymphocytes # (1.0-4.8) k/uL Chloride (96-109) mmol/L BUN/Creatinine Ratio (12.00-20.00) Ratio POC Glucose (mg/dL) 123 H (70-110) mg/dL Calcium (8.7-10.3) mg/dL AST (13-35) U/L ALT (8-44) U/L Alkaline Phosphatase (41-126) U/L Total Protein (6.2-8.2) g/dL Albumin (3.8-4.9) g/dL
[2024-08-22 17:02] LABS: Glucose,Whole Blood 140 mg/dL (70-110)
[2024-08-23 00:49] LABS: Glucose,Whole Blood 158 mg/dL (70-110)
[2024-08-23 06:26] LABS: Glucose,Whole Blood 187 mg/dL (70-110)
--- NOTE | 2024-08-23 07:56 | P.PN ---
Subjective Progress Note Date: 08/23/24 No acute events overnight per nursing staff. Patient has been up to chair and is a heavy 2 person assist yesterday. Patient will work with PT and OT. Patient states they only have pain in their right hip if they move, but without moving they have no pain in the right hip this morning. Objective - Vital Signs Vital signs: Vital Signs Temp 99.1 F 08/23/24 00:47 Pulse 86 08/23/24 00:47 Resp 15 08/23/24 00:47 BP 142/71 08/23/24 00:47 Pulse Ox 96 08/23/24 00:47 FiO2 Intake & Output 08/22/24 08/23/24 08/23/24 18:59 06:59 18:59 Output Total 800 500 Balance -800 -500 Output: Urine 800 500 Other: Voiding Method Indwelling Catheter External Catheter # Voids 1 - Exam Patient is examined at bedside this morning. Patient is resting in bed. Patient is awake alert and able to answer questions. On exam there is a surgical dressing over the anterior right hip, is intact, there is no strikethrough, there is no surrounding erythema. Patient's right femoral nerve function is grossly intact, patient is able to plantarflex and dorsiflex the ankle and toes. - Labs CBC & Chem 7: 08/22/24 04:37 08/22/24 04:37 Labs: Abnormal Lab Results - Last 24 Hours (Table) 08/22/24 08/22/24 08/22/24 Range/Units 04:37 04:37 11:39 RBC 3.46 L (4.10-5.20) X 10*6/uL Hgb 10.0 L (12.0-15.0) g/dL Hct 31.9 L (37.2-46.3) % MCHC 31.3 L (32.0-37.0) g/dL RDW 14.6 H (11.5-14.5) % Carbon Dioxide 19.4 L (21.6-31.8) mmol/L Anion Gap 12.60 H (4.00-12.00) mmol/L BUN/Creatinine Ratio 22.43 H (12.00-20.00) Ratio Glucose 112 H (70-110) mg/dL POC Glucose (mg/dL) 166 H (70-110) mg/dL Calcium 7.9 L (8.7-10.3) mg/dL AST 82 H (13-35) U/L ALT 73 H (8-44) U/L Alkaline Phosphatase 155 H (41-126) U/L Total Protein 5.1 L (6.2-8.2) g/dL Albumin 3.2 L (3.8-4.9) g/dL 08/22/24 08/23/24 08/23/24 Range/Units 17:01 00:47 06:25 RBC (4.10-5.20) X 10*6/uL Hgb (12.0-15.0) g/dL Hct (37.2-46.3) % MCHC (32.0-37.0) g/dL RDW (11.5-14.5) % Carbon Dioxide (21.6-31.8) mmol/L Anion Gap (4.00-12.00) mmol/L BUN/Creatinine Ratio (12.00-20.00) Ratio Glucose (70-110) mg/dL POC Glucose (mg/dL) 140 H 158 H 187 H (70-110) mg/dL Calcium (8.7-10.3) mg/dL AST (13-35) U/L ALT (8-44) U/L Alkaline Phosphatase (41-126) U/L Total Protein (6.2-8.2) g/dL Albumin (3.8-4.9) g/dL Assessment and Plan Assessment: postoperative day #2 status post right hip hemiarthroplasty for femoral neck fracture Resolving postoperative delirium Baseline Alzheimer's dementia Parkinson's disease Plan: 1. Weight bear as tolerated on the operative extremity, up with assistance and a walker 2. DVT prophylaxis with aspirin 81 mg BID 3. 2 doses of post operative antibiotics 4. Leave surgical dressing in place 5. Internal medicine for jorje-operative medical management. Appreciate their assistance with medical management 6. Physical therapy for gait training and mobilization 7. Dispo: The patient will likely need discharge to subacute nursing facility or rehab in 1-2 days.
[2024-08-23 09:35] LABS: Magnesium 1.9 mg/dL (1.5-2.4)
[2024-08-23 10:03] LABS: ALT 40 U/L (8-44); AST 41 U/L (13-35); Albumin 2.9 g/dL (3.8-4.9); Albumin/Globulin Ratio 1.61 Ratio (1.60-3.17); Alkaline Phosphatase 133 U/L (41-126); BUN/Creat Ratio 20.17 Ratio (12.00-20.00); Blood Urea Nitrogen 12.1 mg/dL (9.0-27.0); Calcium 7.7 mg/dL (8.7-10.3); Carbon Dioxide 21.1 mmol/L (21.6-31.8); Chloride 108 mmol/L (96-109); Globulin 1.8 g/dL (1.6-3.3); Glucose 145 mg/dL (70-110); Potassium 3.8 mmol/L (3.5-5.5); Sodium 139 mmol/L (135-145); Total Bilirubin 0.5 mg/dL (0.3-1.2); Total Protein 4.7 g/dL (6.2-8.2)
--- NOTE | 2024-08-23 10:49 | CDI ---
Documentation Clarification Form Date: 08/23/2024 09:55:46 AM From: Esha Kendrick RN, CCDS Phone: [phone] Admit Date: 08/20/2024 11:38:00 AM Patient Name: Camden Mcleod Visit Number: [id number] Discharge Date: ATTENTION: The Clinical Documentation Specialists (CDI) and [facility] Coding Staff appreciate your assistance in clarifying documentation. Please respond to the clarification below the line at the bottom and electronically sign. The CDI & [facility] Coding staff will review the response and follow-up if needed. Please note: Queries are made part of the Legal Health Record. If you have any questions, please contact the author of this message via ITS. Doctor/Provider: Josh Lr Resolving postoperative delirium is documented in the ongoing progress note starting on 08/21/24 and patient had right direct anterior hip hemiarthroplasty on 08/21/24. Additional clarification is requested regarding the relationship, if any, that exists between the diagnosis and the procedure. Patients Admitting Diagnosis: Right subcapital femoral neck fracture Post-Operative Diagnosis: Same Procedure performed: Right direct anterior hip hemiarthroplasty History/Risk Factors: Dementia, Hypertension, Parkinson's disease, Alzheimer's dementia. Clinical Indicators: 88-year-old female presented to the hospital status post mechanical fall. She had a displaced femoral neck fracture with a Right direct anterior hip hemiarthroplasty on 08/21/24. 08/22 VS 150/79 90 15 98.9 98% 08/22 Medicine note: Parkinson's disease, Alzheimer's dementia Treatment: Provide safe and supportive care with assistance and redirection as needed -Maintain fall precaution's -Carbidopa Levodapa 50-500 MG BID -Baclofen 10 MG HS -Seroquel 25 MG HS What relationship, if any, exists between the diagnosis of postoperative delirium and the procedure: [ ] Postoperative Delirium is a complication of surgical procedure [ ] Postoperative Delirium is an expected outcome of the surgical procedure [ ] Postoperative Delirium is related to patients co-morbid condition(s) of Parkinson's disease, Alzheimer's dementia, residual effects of anesthesia & not a complication of the procedure [ ] Postoperative delirium has been ruled out [ ] Other please specify ____ [ ] Unable to determine (Template Last Revised: January 2021) MTDD
[2024-08-23 11:25] LABS: Basophils % (A) 0 %; Eosinophils # (A) 0.1 k/uL (0-0.7); Eosinophils % (A) 1 %; HCT 28.1 % (34.0-46.0); Lymphocytes # (A) 0.3 k/uL (1.0-4.8); Lymphocytes % (A) 4 %; MCHC 31.9 g/dL (31.0-37.0); MCV 90.8 fL (80.0-100.0); Mean Platelet Volume 8.3; Monocytes # (A) 0.3 k/uL (0-1.0); Monocytes % (A) 5 %; Neutrophils # (A) 5.8 k/uL (1.3-7.7); Neutrophils % (A) 89 %; Platelet Count 182 k/uL (150-450); RDW 14.6 % (11.5-15.5); WBC 6.5 k/uL (3.8-10.6)
[2024-08-23 11:49] LABS: Glucose,Whole Blood 168 mg/dL (70-110)
--- NOTE | 2024-08-23 15:47 | P.PN ---
Subjective Progress Note Date: 08/23/24 Hospital course: Patient is a pleasant 88-year-old female with a past medical history of hypertension, Parkinson's disease, and Alzheimer's dementia. She presented to the hospital status post mechanical fall yesterday. Patient ambulates with walker at baseline and had a mechanical fall from standing onto right hip. Patient initially able to ambulate a few steps with dragging her leg yesterday but today was unable to get out of bed due to right hip pain. Patient and family member at bedside denied patient hitting her head, loss of consciousness, dizziness prior to fall, or having any other injuries secondary to fall. States she was walking with her walker and simply lost her balance. Upon arrival to our facility, patient underwent evaluation in the emergency department. Vital signs upon arrival show blood pressure 147/96, heart rate 87, respiratory rate 16, temp 98.9 F, and SpO2 of 92% on room air. Preoperative EKG was reviewed showing sinus mechanism at 78 bpm with an incomplete right bundle branch block and no significant T wave or ST abnormality showing no signs of acute ischemia upon personal review and interpretation. Labs completed and reviewed. CBC unremarkable. Coagulation profile showing a low PTT of 21.6 otherwise normal fi ndings. BMP normal findings with the exception of slightly elevated glucose of 121. Magnesium 2.0. Liver profile showing elevated AST of 108 and ALT of 45 otherwise normal findings. Chest x-ray negative for acute cardiopulmonary process showing mild cardiomegaly. X-ray right hip showing a nondisplaced subcapital fracture to right hip. Patient was admitted under orthopedic surgery team and we were consulted for medical clearance and medical management throughout hospitalization. Physical exam: Patient was seen and fully evaluated at bedside this morning. She was sitting up in the chair this morning and reports doing okay. She reports pain is not bad this morning and states only her nose is bothering her from the oxygen. Patient encouraged to increase use of incentive spirometer and was educated and demonstrated back at bedside on how to use. Discussed with RN to wean patient off of oxygen as patient tolerates. Patient denies having any other needs at this time. Patient's daughter also at bedside and also denies having any further questions, needs, or concerns at this time. Vital signs reviewed and stable. General: Nontoxic, no distress and appears stated age. Derm: Skin warm and dry, normal coloration for ethnicity. Head: Atraumatic, normocephalic and symmetric. Eyes: EOM's intact, no lid lag, and anicteric sclera Mouth: no lip lesions, mucus membranes moist Cardiovascular: regular rate and rhythm with normal S1S2, no murmur, positive posterior tibial pulses bilaterally, and cap refill < 2 seconds. Lungs: Respirations even, regular, and unlabored on room air. Lungs CTA bilaterally, no rhonchi, no rales, no wheezing, and no accessory muscle usage. Abdominal: soft, nontender to palpation, no guarding, no appreciable organomegaly. Orozco catheter in place. Ext: Movement and sensation intact. No gross muscle atrophy, no edema, no contractures. Postoperative dressing intact right lateral hip/thigh. Neuro: Speech clear, face symmetrical and CN II-XII grossly intact with no noted focal neuro deficits Psych: Alert and oriented to person, place, time, and situation. Appropriate and pleasant affect. Assessment and Plan of Care: Status post right hemiarthroplasty Nondisplaced subcapital fracture to right hip -Management per primary admitting orthopedic surgery team including DVT prophylaxis, pain management, wound/dressing management, weightbearing, and PT/OT. -Patient currently on DVT prophylaxis with aspirin 81 mg twice daily. -Encourage use of incentive spirometry. -Patient to remain on telemetry monitoring at this time. Acute blood loss anemia secondary to traumatic femur fracture -Hemoglobin upon arrival 12.6 currently 9.0. No signs of active bleeding. No need for blood transfusion or further intervention at this time. Will continue to monitor with repeat a.m. labs and transfuse if indicated for hemoglobin less than 7. Transaminitis, improving -Likely reactive and are improving. Will continue to monitor for resolution with repeat a.m. labs. Hypertension -Vital signs reviewed and stable with blood pressure 145/77 and heart rate 93. Continue daily medication regimen with amlodipine 5 mg daily. Parkinson's disease Alzheimer's dementia Provide safe and supportive care with assistance and redirection as needed. Maintain fall precautions Continue daily medication regimen with carbidopa levodopa 50-200 mg tablets twice daily, baclofen 10 mg nightly, and Seroquel 25 mg nightly. Data and imaging reviewed: Morning labs reviewed. CBC showing stable hemoglobin of 9.0. BMP showing mild hypocarbia with bicarb of 21.1 otherwise normal findings. Blood glucose 145. Magnesium 1.9. Liver profile showing near resolution of previous transaminitis with AST of 41, ALT of 40, and alkaline phosphatase of 133. Vital signs reviewed. Blood pressure 156/73, heart rate 92, respiratory rate 17, temp 99.9 F, and SpO2 of 98% on 2 L. Thank you for allowing us to participate in the care of this pleasant patient. Do not hesitate to contact us with questions. Someone can be reached from the [facility]Note 3] hospitalist group all hours of the day at [phone] or via [employer] Data serve. Patient was seen independently by Nurse Practitioner. This document was prepared using [employer] dictation software. Please allow for errors in guardian family member while rare they do occur. . I reviewed the documentation as provided by the ELENA above, who is the original author of this note. I agree with the documented assessment and plan, with the following changes: none Objective - Vital Signs Vital signs: Vital Signs Temp 99.9 F H 08/23/24 07:59 Pulse 92 08/23/24 07:59 Resp 17 08/23/24 07:59 BP 156/73 08/23/24 07:59 Pulse Ox 98 08/23/24 07:59 FiO2 Intake & Output 08/22/24 08/23/24 08/23/24 18:59 06:59 18:59 Output Total 800 500 Balance -800 -500 Output: Urine 800 500 Other: Voiding Method Indwelling Catheter External Catheter # Voids 1 - Labs CBC & Chem 7: 08/23/24 10:49 08/23/24 04:58 Labs: Abnormal Lab Results - Last 24 Hours (Table) 08/22/24 08/22/24 08/22/24 Range/Units 04:37 04:37 11:39 RBC 3.46 L (4.10-5.20) X 10*6/uL Hgb 10.0 L (12.0-15.0) g/dL Hct 31.9 L (37.2-46.3) % MCHC 31.3 L (32.0-37.0) g/dL RDW 14.6 H (11.5-14.5) % Carbon Dioxide 19.4 L (21.6-31.8) mmol/L Anion Gap 12.60 H (4.00-12.00) mmol/L BUN/Creatinine Ratio 22.43 H (12.00-20.00) Ratio Glucose 112 H (70-110) mg/dL POC Glucose (mg/dL) 166 H (70-110) mg/dL Calcium 7.9 L (8.7-10.3) mg/dL AST 82 H (13-35) U/L ALT 73 H (8-44) U/L Alkaline Phosphatase 155 H (41-126) U/L Total Protein 5.1 L (6.2-8.2) g/dL Albumin 3.2 L (3.8-4.9) g/dL 08/22/24 08/23/24 08/23/24 Range/Units 17:01 00:47 06:25 RBC (4.10-5.20) X 10*6/uL Hgb (12.0-15.0) g/dL Hct (37.2-46.3) % MCHC (32.0-37.0) g/dL RDW (11.5-14.5) % Carbon Dioxide (21.6-31.8) mmol/L Anion Gap (4.00-12.00) mmol/L BUN/Creatinine Ratio (12.00-20.00) Ratio Glucose (70-110) mg/dL POC Glucose (mg/dL) 140 H 158 H 187 H (70-110) mg/dL Calcium (8.7-10.3) mg/dL AST (13-35) U/L ALT (8-44) U/L Alkaline Phosphatase (41-126) U/L Total Protein (6.2-8.2) g/dL Albumin (3.8-4.9) g/dL
--- NOTE | 2024-08-24 08:28 | P.DS ---
Providers Date of admission: 08/20/24 11:38 Attending physician: Josh Lr Consults: 08/20/24 11:36 Consult Physician Routine Consulting Provider: Constance Campa Consult Reason/Comments: medical care Do you want consulting provider notified?: Yes Primary care physician: Stated None Hospital Course: Patient is an 88-year-old female who presented to the emergency department with concerns of right hip pain. X-rays showed Right subcapital femoral head fracture status post ground-level fall. On 08/21/2024 patient underwent right hip hemiarthroplasty for right subcapital femoral head fracture status post ground-level fall by Dr. Lr. Patient tolerated the procedure well and transferred to the orthopedic floor. Patient is pain has been under control, and patient states that they only have pain with movement, and had no pain at rest. On exam today surgical dressing was intact, clean, and free of strikethrough. Patient was evaluated by physical therapy and it was determined that patient would need 24/7 care and I agree based on patient's lack of ability to ambulate safely on their own so far status post right hip hemiarthroplasty. Will arrange for transfer to rehab today. Assessment: Status post right hip hemiarthroplasty on 08/21/[address] Josh Lr for right hip fracture. Plan - Discharge Summary Discharge Rx Participant: Yes New Discharge Prescriptions: New HYDROcodone/APAP 5-325MG [Slaton 5] 1 - 2 each PO Q6HR PRN #32 tab PRN Reason: Pain Ondansetron [Zofran] 4 mg PO Q6HR PRN #30 tab PRN Reason: Nausea Aspirin 81 mg PO BID #60 tab Docusate [Colace] 100 mg PO BID #60 capsule Omeprazole 20 mg PO DAILY #30 tab Continue amLODIPine [Norvasc] 5 mg PO DAILY Carbidopa-Levodopa ER 50-200Mg [Sinemet CR 50-200 mg] 1 tab PO BID QUEtiapine [SEROquel] 25 mg PO HS Baclofen 10 mg PO HS Magnesium Oxide [Magnesium] 500 mg PO DAILY No Action HYDROcodone/APAP 5-325MG [Slaton 5-325] 1 tab PO Q6H PRN PRN Reason: Pain Discharge Medication List Baclofen 10 mg PO HS 08/20/24 [History] Carbidopa-Levodopa ER 50-200Mg [Sinemet CR 50-200 mg] 1 tab PO BID 08/20/24 [History] HYDROcodone/APAP 5-325MG [Slaton 5-325] 1 tab PO Q6H PRN 08/20/24 [History] Magnesium Oxide [Magnesium] 500 mg PO DAILY 08/20/24 [History] QUEtiapine [SEROquel] 25 mg PO HS 08/20/24 [History] amLODIPine [Norvasc] 5 mg PO DAILY 08/20/24 [History] Aspirin 81 mg PO BID #60 tab 08/23/24 [Rx] Docusate [Colace] 100 mg PO BID #60 capsule 08/23/24 [Rx] HYDROcodone/APAP 5-325MG [Slaton 5] 1 - 2 each PO Q6HR PRN #32 tab 08/23/24 [Rx] Omeprazole 20 mg PO DAILY #30 tab 08/23/24 [Rx] Ondansetron [Zofran] 4 mg PO Q6HR PRN #30 tab 08/23/24 [Rx] Follow up Appointment(s)/Referral(s): Aspen Diehl MD [REFERRING] - 3 Days (Please call and schedule appointment at [facility] prior to discharge, pt needs to be established with PCP. ) [facility], [NON-STAFF] - As Needed Josh Lr MD [Medical Doctor] - 2 Weeks Activity/Diet/Wound Care/Special Instructions: 1. Weight-bear as tolerated on your operative extremity unless instructed otherwise. Use a walker or other assistive device to ambulate. 2. Leave surgical dressing in place. If your dressing becomes saturated with blood, there is drainage, or the dressing becomes loose please contact the office. 3. It is okay to shower with your surgical dressing, but do not submerge in water (no hot tubs, bath's, swimming etc.) 4. Take your blood clot prevention medication as prescribed (aspirin, Eliquis, Xarelto, and Plavix are commonly prescribed medications for blood clot prevention) 5. While taking Slaton or Percocet for pain take a stool softener (Ex: Colace) and drink lots of water. 6. Keep all follow-up appointments as scheduled. You will usually be seen in 1-2 weeks following surgery. 7. Please contact the office with any questions or concerns [phone] Discharge Disposition: TRANSFER TO SNF/ECF
[2024-08-24 09:01] LABS: HCT 26.4 % (37.2-46.3); HGB 8.5 g/dL (12.0-15.0); MCH 29.7 pg (27.0-32.0); MCHC 32.2 g/dL (32.0-37.0); MCV 92.3 FL (80.0-97.0); Mean Platelet Volume 11.3 FL (9.5-12.2); NRBC Per 100 WBC 0 X 10*3/uL (0.00-0.01); Platelet Count 156 X 10*3/uL (140-440); RBC 2.86 X 10*6/uL (4.10-5.20); WBC 6.45 X 10*3/uL (4.50-10.00)
[2024-08-24 09:04] LABS: ALT 22 U/L (8-44); AST 34 U/L (13-35); Albumin 2.7 g/dL (3.8-4.9); Alkaline Phosphatase 130 U/L (41-126); Blood Urea Nitrogen 10.7 mg/dL (9.0-27.0); Calcium 7.8 mg/dL (8.7-10.3); Chloride 109 mmol/L (96-109); Globulin 1.8 g/dL (1.6-3.3); Glucose 117 mg/dL (70-110); Magnesium 1.8 mg/dL (1.5-2.4); Potassium 3.8 mmol/L (3.5-5.5); Sodium 140 mmol/L (135-145); Total Bilirubin 0.4 mg/dL (0.3-1.2); Total Protein 4.5 g/dL (6.2-8.2)
[2024-08-24 12:51] VITALS: BP 153/79; PULSE 100; RESP 17; TEMP 99.6
--- NOTE | 2024-08-24 15:07 | P.PN ---
Subjective Progress Note Date: 08/24/24 Hospital course: Patient is a pleasant 88-year-old female with a past medical history of hypertension, Parkinson's disease, and Alzheimer's dementia. She presented to the hospital status post mechanical fall yesterday. Patient ambulates with walker at baseline and had a mechanical fall from standing onto right hip. Patient initially able to ambulate a few steps with dragging her leg yesterday but today was unable to get out of bed due to right hip pain. Patient and family member at bedside denied patient hitting her head, loss of consciousness, dizziness prior to fall, or having any other injuries secondary to fall. States she was walking with her walker and simply lost her balance. Upon arrival to our facility, patient underwent evaluation in the emergency department. Vital signs upon arrival show blood pressure 147/96, heart rate 87, respiratory rate 16, temp 98.9 F, and SpO2 of 92% on room air. Preoperative EKG was reviewed showing sinus mechanism at 78 bpm with an incomplete right bundle branch block and no significant T wave or ST abnormality showing no signs of acute ischemia upon personal review and interpretation. Labs completed and reviewed. CBC unremarkable. Coagulation profile showing a low PTT of 21.6 otherwise normal fi ndings. BMP normal findings with the exception of slightly elevated glucose of 121. Magnesium 2.0. Liver profile showing elevated AST of 108 and ALT of 45 otherwise normal findings. Chest x-ray negative for acute cardiopulmonary process showing mild cardiomegaly. X-ray right hip showing a nondisplaced subcapital fracture to right hip. Patient was admitted under orthopedic surgery team and we were consulted for medical clearance and medical management throughout hospitalization. Physical exam: Patient was seen and fully evaluated at bedside this morning. Patient resting in bed this morning and currently denies any complaints. Patient reports controlled postoperative pain to right hip this morning. Patient states she is ready to get out of the hospital and not excited about needing to go to rehab. Vital signs reviewed and stable. General: Nontoxic, no distress and appears stated age. Derm: Skin warm and dry, normal coloration for ethnicity. Head: Atraumatic, normocephalic and symmetric. Eyes: EOM's intact, no lid lag, and anicteric sclera Mouth: no lip lesions, mucus membranes moist Cardiovascular: regular rate and rhythm with normal S1S2, no murmur, positive posterior tibial pulses bilaterally, and cap refill < 2 seconds. Lungs: Respirations even, regular, and unlabored on room air. Lungs CTA bilaterally, no rhonchi, no rales, no wheezing, and no accessory muscle usage. Abdominal: soft, nontender to palpation, no guarding, no appreciable organomegaly. Orozco catheter in place. Ext: Movement and sensation intact. No gross muscle atrophy, no edema, no contractures. Postoperative dressing intact right lateral hip/thigh. Neuro: Speech clear, face symmetrical and CN II-XII grossly intact with no noted focal neuro deficits Psych: Alert and oriented to person, place, time, and situation. Appropriate and pleasant affect. Assessment and Plan of Care: Status post right hemiarthroplasty Nondisplaced subcapital fracture to right hip -Management per primary admitting orthopedic surgery team including DVT prophylaxis, pain management, wound/dressing management, weightbearing, and PT/OT. -Patient currently on DVT prophylaxis with aspirin 81 mg twice daily. -Encourage use of incentive spirometry. -Patient to remain on telemetry monitoring at this time. Acute blood loss anemia secondary to traumatic femur fracture -Hemoglobin upon arrival 12.6 currently 9.0. No signs of active bleeding. No need for blood transfusion or further intervention at this time. Will continue to monitor with repeat a.m. labs and transfuse if indicated for hemoglobin less than 7. Transaminitis, improving -Likely reactive and are improving. Will continue to monitor for resolution with repeat a.m. labs. Hypertension -Vital signs reviewed and stable with blood pressure 145/77 and heart rate 93. Continue daily medication regimen with amlodipine 5 mg daily. Parkinson's disease Alzheimer's dementia Provide safe and supportive care with assistance and redirection as needed. Maintain fall precautions Continue daily medication regimen with carbidopa levodopa 50-200 mg tablets twice daily, baclofen 10 mg nightly, and Seroquel 25 mg nightly. Data and imaging reviewed: Morning labs reviewed. CBC showing stable hemoglobin of 8.5. BMP showing mild hypocarbia with bicarb of 21.1 otherwise normal findings. Blood glucose 117 Magnesium 1.8. Liver profile showing near resolution of previous transaminitis with AST of 34, ALT of 22, and alkaline phosphatase of 130. Vital signs reviewed. Blood pressure 155/74, heart rate 104, respiratory rate 18, temp 99.0 F, and SpO2 of 93% on room air. Thank you for allowing us to participate in the care of this pleasant patient. Do not hesitate to contact us with questions. Someone can be reached from the [facility] [place]Note 2[place] hospitalist group all hours of the day at [phone] or via perfect serve. Patient was seen independently by Nurse Practitioner. This document was prepared using [employer] dictation software. Please allow for errors in art gallery internship while rare they do occur. .I reviewed the documentation as provided by the ELENA above, who is the original author of this note. I agree with the documented assessment and plan, with the following changes: none Objective - Vital Signs Vital signs: Vital Signs Temp 99 F 08/24/24 07:07 Pulse 104 H 08/24/24 07:07 Resp 18 08/24/24 07:07 BP 155/74 08/24/24 07:07 Pulse Ox 93 L 08/24/24 07:07 FiO2 Intake & Output 08/23/24 08/24/24 08/24/24 18:59 06:59 18:59 Output Total 250 200 Balance -250 -200 Output: Urine 250 200 Other: Voiding Method External Catheter Incontinent External Catheter # Voids 1 - Labs CBC & Chem 7: 08/24/24 04:36 08/24/24 04:36 Labs: Abnormal Lab Results - Last 24 Hours (Table) 08/23/24 08/23/24 08/23/24 Range/Units 04:58 10:49 11:48 RBC 3.10 L (3.80-5.40) m/uL Hgb 9.0 L D (11.4-16.0) gm/dL Hct 28.1 L (34.0-46.0) % RDW (11.5-14.5) % Lymphocytes # 0.3 L (1.0-4.8) k/uL Carbon Dioxide 21.1 L (21.6-31.8) mmol/L Creatinine (0.6-1.5) mg/dL BUN/Creatinine Ratio 20.17 H (12.00-20.00) Ratio Glucose 145 H (70-110) mg/dL POC Glucose (mg/dL) 168 H (70-110) mg/dL Calcium 7.7 L (8.7-10.3) mg/dL AST 41 H (13-35) U/L Alkaline Phosphatase 133 H (41-126) U/L Total Protein 4.7 L (6.2-8.2) g/dL Albumin 2.9 L (3.8-4.9) g/dL Albumin/Globulin Ratio (1.60-3.17) Ratio 08/24/24 08/24/24 Range/Units 04:36 04:36 RBC 2.86 L (3.80-5.40) m/uL Hgb 8.5 L (11.4-16.0) gm/dL Hct 26.4 L (34.0-46.0) % RDW 15.0 H (11.5-14.5) % Lymphocytes # (1.0-4.8) k/uL Carbon Dioxide 21.0 L (21.6-31.8) mmol/L Creatinine 0.5 L (0.6-1.5) mg/dL BUN/Creatinine Ratio 21.40 H (12.00-20.00) Ratio Glucose 117 H (70-110) mg/dL POC Glucose (mg/dL) (70-110) mg/dL Calcium 7.8 L (8.7-10.3) mg/dL AST (13-35) U/L Alkaline Phosphatase 130 H (41-126) U/L Total Protein 4.5 L (6.2-8.2) g/dL Albumin 2.7 L (3.8-4.9) g/dL Albumin/Globulin Ratio 1.50 L (1.60-3.17) Ratio
--- NOTE | 2024-08-27 06:03 | P.PN ---
Progress Note - Text Post op delirium is related to patient's co-morbid condition(s) of Parkinson's disease, Alzheimer's dementia, residual effects of anesthesia and not a complication of the procedure
== END 2024-08-24 13:29 | DRG 522 ==
LOC: EC 08:18 → 4SSUR 11:38
PROVIDERS: ADMIT Orthopaedic Surgery; ATTEND Orthopaedic Surgery
PROC: 0SRR019 Replacement of Right Hip Joint, Femoral Surface with Metal Synthetic Substitute, Cemented, Open Approach (ICD-10-PCS; principal; 2024-08-21 11:00)
DX: S72.011A Unspecified intracapsular fracture of right femur, initial encounter for closed fracture (principal); F05 Delirium due to known physiological condition; D62 Acute posthemorrhagic anemia; W18.30XA Fall on same level, unspecified, initial encounter; T41.45XA Adverse effect of unspecified anesthetic, initial encounter; G20.A1 Parkinson's disease without dyskinesia, without mention of fluctuations; I45.10 Unspecified right bundle-branch block; G30.9 Alzheimer's disease, unspecified; R74.01 Elevation of levels of liver transaminase levels; F02.80 Dementia in other diseases classified elsewhere, unspecified severity, without behavioral disturbance, psychotic disturbance, mood disturbance, and anxiety; I10 Essential (primary) hypertension; Z88.0 Allergy status to penicillin; Z79.899 Other long term (current) drug therapy
CPT/HCPCS: 51701; 71045; 73501; 73502; 80053; 83735; 85025; 85027; 85610; 85730; 93005; 96361; 96374; 96376; 99285